=== PATIENT | female | born 2005 | race Caucasian/White ===

== ENCOUNTER 2023-05-13 09:58 | Emergency (ER) | payer OTHER, SELFPAY ==
--- NOTE | ~2023-05-13 | XR_ITS ---
EXAMINATION: XR chest 2V DATE: 05/13/2023 10:53 INDICATION: 2 days of cough TECHNIQUE: PA and lateral views of the chest were obtained. COMPARISON: None FINDINGS: The lungs are clear with no focal airspace opacities, pulmonary edema, pleural effusion or pneumothor ax. The cardiomediastinal silhouette is normal. Visualized bones and soft tissues are unremarkable. IMPRESSION: 1. No acute cardiopulmonary disease. Reviewed, dictated and finalized at location A. [facility]ER
[2023-05-13 10:01] VITALS: BP 161/89; PULSE 89; RESP 18; TEMP 36.6; O2SAT 100
--- NOTE | 2023-05-13 10:08 | ED.GENADULT ---
HPI - General Adult General Chief complaint: Upper Respiratory Infection Stated complaint: flu Time Seen by Provider: 05/13/23 10:01 Source: patient Mode of arrival: ambulatory Limitations: no limitations History of Present Illness HPI narrative: 17 yo F with PMHx of PCOS presents to ED due to 4 days of cough, congestion, sore throat. Having some night sweats. Takes Ibuprofen at home for her symptoms. Denied shortness of breath or chest pain. Related Data Home Medications Medication Instructions Recorded Confirmed No Home Medications 05/13/23 05/13/23 Allergies Allergy/AdvReac Type Severity Reaction Status Date / Time No Known Allergies Allergy Verified 05/13/23 10:07 Review of Systems Constitutional: Constitutional: Reports as per HPI and Reports no additional constitutional complaints Eyes: Eyes: Reports as per HPI and Reports no additional eye complaints ENT: Reports system reviewed and no additional complaints, except as documented and Reports as per HPI Cardiovascular: Cardiovascular: Reports as per HPI and Reports no additional cardiovascular complaints Respiratory: Respiratory: Reports as per HPI and Reports no additional respiratory complaints Gastrointestinal: Gastrointestinal: Reports as per HPI and Reports no additional gastrointestinal complaints Genitourinary: Genitourinary: Reports as per HPI Musculoskeletal: Musculoskeletal: Reports no additional musculoskeletal complaints and Reports as per HPI Integumentary/Breasts: Skin/Breast: Reports system reviewed and no additional complaints, except as docu and Reports as per HPI Neurologic: Reports system reviewed and no additional complaints, except as documented and Reports as per HPI Psychiatric: Psychiatric: Reports no additional psychiatric complaints and Reports as per HPI Endocrine: Endocrine: Reports no additional endocrine complaints and Reports as per HPI Hematologic/Lymphatic: Hematologic/Lymphatic: Reports no additional hematologic/lymphatic complaints and Reports as per HPI Allergic/Immunologic: Allergic/Immunologic: Reports no additional allergic/immunologic complaints and Reports as per HPI Exam Const: General: cooperative, healthy appearing, comfortable, no acute distress, well developed, alert, awake, average body habitus and well nourished Nutritional Appearance: average body habitus and well nourished Orientation/consciousness: oriented to person, oriented to place and oriented to time Limitations: no limitations HENMT: Head: normal to inspection Ears: hearing grossly normal bilaterally, external ears normal and TM's normal bilaterally Face/Nose/Sinus: Normal external nose present, Normal nares present, No nasal polyps present, Normal nasal mucous membranes and turbinates present, Normal septum present, No nasal discharge present, normal facial exam, sinuses nontender and face symmetric Face and sinus: normal facial exam, sinuses nontender and face symmetric Mouth: Yes Normal oral and palatal mucosa present, Yes lip normal, Yes tongue normal, Yes Normal salivary glands and ducts present, Yes oropharynx normal and Yes moist mucous membranes Teeth and gingiva: dentition normal and gingiva normal Throat: posterior oropharynx normal, tonsils normal and uvula midline Eyes: General: appearance normal, both eyes and all related structures Eyelids: eyelids normal Conjunctivae: conjunctivae normal Sclera: sclerae normal Cornea: corneas normal Pupils: Equal, round and reactive pupils present EOM: EOMs intact bilaterally Neck: Neck: normal visual inspection, full ROM and no lymphadenopathy Thyroid: thyroid normal Lymphatic: no lymphadenopathy noted Chest: Chest palpation & inspection: normal inspection of the chest and normal palpation of entire chest wall Resp: Effort & Inspection: normal respiratory effort and able to speak in complete sentences Other: Lung sounds mildly decreased right upper and middle lobes Cardio: Jug
[2023-05-13 10:10] VITALS: O2SAT 100
--- NOTE | 2023-05-13 10:35 | PC.NURSE ---
Patient taken to Xray
[2023-05-13 10:56] LABS: Influenza A QL RT-PCR Negative (Negative); Influenza B QL RT-PCR Negative (Negative); SARS-CoV-2 RNA PCR Negative (Negative)
[2023-05-13 10:57] LABS: RSV RNA, RT-PCR Negative (Negative)
[2023-05-13 11:49] LABS: Strep Group A RT-PCR NOT DETECTED (Negative)
[2023-05-13 12:34] VITALS: BP 148/89; PULSE 85; RESP 18; TEMP 36.6; O2SAT 100
== END 2023-05-13 12:34 | disposition home or self-care (01) ==
PROVIDERS: Emergency Provider Emergency Medicine
DX: J06.9 Acute upper respiratory infection, unspecified (principal); Z20.822 Contact with and (suspected) exposure to COVID-19
CPT/HCPCS: 71046; 87637; 87651; 99283

== ENCOUNTER 2023-06-20 13:06 | Emergency (ER) | payer OTHER, SELFPAY ==
[2023-06-20 13:08] VITALS: BP 164/100; PULSE 116; RESP 20; TEMP 38.6; O2SAT 100
[2023-06-20] MEDS: ACETAMINOPHEN 325 MG TABLET 650 MG PO (13:25)
[2023-06-20 13:30] VITALS: O2SAT 100
[2023-06-20 13:58] LABS: Influenza A QL RT-PCR Positive (Negative); Influenza B QL RT-PCR Negative (Negative); RSV RNA, RT-PCR Negative (Negative); SARS-CoV-2 RNA PCR Negative (Negative)
--- NOTE | 2023-06-20 14:13 | ED.GENADULT ---
HPI - General Adult General Chief complaint: Upper Respiratory Infection Stated complaint: fever cough Source: patient Mode of arrival: ambulatory Limitations: no limitations History of Present Illness HPI narrative: this is a 17-year-old female with some cough congestion fever and body aches with no shortness of breath no nausea vomiting no abdominal pain. Onset (ago): day(s) Radiation: non-radiation Severity: mild Related Data Allergies Allergy/AdvReac Type Severity Reaction Status Date / Time No Known Allergies Allergy Verified 06/20/23 13:47 Review of Systems Review of Systems: All systems reviewed & are unremarkable except as noted in HPI and below PMFSH Past Medical History Medical History Patient denies medical problems Exam Const: General: healthy appearing and no acute distress Nutritional Appearance: well nourished HENMT: Head: normal to inspection Neck: Neck: normal visual inspection, no lymphadenopathy and no meningeal signs Chest: Chest palpation & inspection: normal inspection of the chest Resp: Effort & Inspection: normal respiratory effort Auscultation: clear to auscultation bilaterally Cardio: Rate: tachycardic Rhythm: regular rhythm GI: GI Palp: Yes Soft to palpation Skin: General skin exam: normal color Rashes: no rashes Psych: Mental Status: mental status grossly normal Course Course Emergency Course: patient positive for influenza and be sending a medication to her pharmacy. Vital Signs Vital signs: Vital Signs Temperature 38.6 C H 06/20/23 13:08 Pulse Rate 116 H 06/20/23 13:08 Respiratory Rate 06/20/23 13:08 Blood Pressure 164/100 H 06/20/23 13:08 Pulse Oximetry 100 06/20/23 13:08 Oxygen Delivery Room Air 06/20/23 13:08 Temperature 38.6 C H 06/20/23 13:08 Pulse Rate 116 H 06/20/23 13:08 Respiratory Rate 06/20/23 13:08 Blood Pressure 164/100 H 06/20/23 13:08 Pulse Oximetry 100 06/20/23 13:08 Oxygen Delivery Room Air 06/20/23 13:08 Medical Decision Making Vital Signs Vital Signs: Vital Signs Temperature 38.6 C H 06/20/23 13:08 Pulse Rate 116 H 06/20/23 13:08 Respiratory Rate 06/20/23 13:08 Blood Pressure 164/100 H 06/20/23 13:08 Pulse Oximetry 100 06/20/23 13:08 Oxygen Delivery Room Air 06/20/23 13:08 Temperature 38.6 C H 06/20/23 13:08 Pulse Rate 116 H 06/20/23 13:08 Respiratory Rate 20 06/20/23 13:08 Blood Pressure 164/100 H 06/20/23 13:08 Pulse Oximetry 100 06/20/23 13:08 Oxygen Delivery Room Air 06/20/23 13:08 Lab Data Labs: Lab Results 06/20/23 Range/Units 13:07 Influenza A (RT-PCR) Positive A (Negative) Influenza B (RT-PCR) Negative (Negative) RSV (RT-PCR) Negative (Negative) SARS-CoV-2 RNA (RT-PCR) Negative (Negative) Critical Care Time Critical Care Time Critical Care Time: No Discharge Plan Discharge Clinical Impression: Influenza Patient Disposition: Home, Self-Care Condition: Stable Instructions: Antibiotic Form, Influenza (ED) Additional Instructions: Take medicine as prescribed, drink plenty of fluids and can use Tylenol or Motrin for fever and body aches. Prescriptions: New oseltamivir [Tamiflu] 75 mg capsule 75 mg PO Q12H 5 Days Qty: 10 0RF Follow-up/Referrals: UNKNOWN,DOCTOR [Primary Care Provider] - Stand Alone Forms: Work/School Release IP Time of Disposition: 14:17
[2023-06-20 14:20] VITALS: BP 145/95; PULSE 102; RESP 12; TEMP 37; O2SAT 94
== END 2023-06-20 14:25 | disposition home or self-care (01) ==
PROVIDERS: Emergency Provider Emergency Medicine
DX: J11.1 Influenza due to unidentified influenza virus with other respiratory manifestations (principal); Z20.822 Contact with and (suspected) exposure to COVID-19
CPT/HCPCS: 87637; 99283; A9270